=== PATIENT | female | born 1995 | race Caucasian/White ===

== ENCOUNTER → 2021-09-02 11:08 | Outpatient (CLI) | payer OTHER, SELFPAY ==
--- NOTE | 2021-09-02 | DI.US.S_ITS ---
PROCEDURE: US PELVIC COMPLETE INDICATIONS: IRREGULAR MENSES. INTRAUTERINE DEVICE. TECHNIQUE: Real-time scanning was performed of the pelvic organs, with image documentation. Additional endovaginal scanning was necessary due to incomplete visualization of the adnexal and endometrial structures by transabdominal scanning. COMPARISON: None. FINDINGS: Uterus: Uterus is anteverted and normal in size at 6.9 x 5.3 x 4.0 cm. The myometrium is homogeneous. The endometrium measures 4.8 mm combined thickness. Intrauterine device in place Ovaries: The right ovary measures 3.9 x 3.8 x 3.8 cm,. The left ovary measures 2.8 x 3.0 x 1.7 cm, . The ovaries have a normal sonographic appearance. Less than 12 follicles can be seen in each ovary. No adnexal masses are seen. 1.4 x 1.8 x 1.3 cm complex right ovarian cyst Other: No pathologic free abdominal or pelvic fluid. IMPRESSION: Complex right ovarian cyst, 1.8 cm, probably reflects hemorrhagic cyst. Intrauterine device in place. Approved by: Hood Freitas M.D. on 09/02/2021 at 15:43
== END ==
PROVIDERS: PCP Physician Assistant; Referring Provider Physician Assistant; Visit Provider Physician Assistant
DX: N92.6 Irregular menstruation, unspecified (principal); N83.291 Other ovarian cyst, right side; Z97.5 Presence of (intrauterine) contraceptive device
CPT/HCPCS: 76830; 76856

== ENCOUNTER → 2021-11-27 12:39 | Outpatient (CLI) | payer OTHER, SELFPAY ==
--- NOTE | 2021-11-27 12:43 | DI.US.S_ITS ---
PROCEDURE: US PELVIC COMPLETE INDICATIONS: 2 MONTH FOLLOW UP/CYSTS TECHNIQUE: Real-time scanning was performed of the pelvic organs, with image documentation. Additional endovaginal scanning was necessary due to incomplete visualization of the adnexal and endometrial structures by transabdominal scanning. COMPARISON: [facility], US, US PELVIC COMPLETE, 09/02/2021, 11:21. FINDINGS: Uterus: Uterus is anteverted and normal in size at 8.3 x 3.8 x 4-5 cm. The myometrium is homogeneous. The endometrium measures 5.8 mm combined thickness. Intrauterine device is centrally positioned within the uterus. Ovaries: The right ovary measures 4.5 x 3.3 x 3.2 cm. The left ovary measures 3.2 x 2.2 x 3.7 cm. 2.2 x 1.4 x 1.5 centimeter complex cyst in the right ovary. 1.4 x 1.8 x 1.8 centimeter simple cyst in the right ovary. Less than 12 follicles can be seen in each ovary. No adnexal masses are seen. Other: No pathologic free abdominal or pelvic fluid. IMPRESSION: 1. Intrauterine device centrally positioned within the uterus. 2. Left ovary is sonographically normal. 3. Right ovarian cyst including 2.2 x 1.4 x 1.5 complex cyst. Dictated by: Che Price MD, PhD on 11/27/2021 at 15:50 Approved by: Che Price MD, PhD on 11/27/2021 at 15:52
== END ==
PROVIDERS: PCP Physician Assistant; Referring Provider Physician Assistant; Visit Provider Physician Assistant
DX: N83.291 Other ovarian cyst, right side (principal); Z97.5 Presence of (intrauterine) contraceptive device
CPT/HCPCS: 76830; 76856

== ENCOUNTER 2023-01-25 18:14 | Emergency (ER) | payer OTHER, SELFPAY ==
[2023-01-25 18:16] VITALS: BP 166/110; PULSE 96; RESP 18; TEMP 36.4; O2SAT 100; BMI 29.8
--- NOTE | 2023-01-25 18:24 | DI.CT.S_ITS ---
PROCEDURE: CT CERVICAL SPINE WO CON INDICATIONS: thrown from horse 01/20 TECHNIQUE: Noncontrast 3 mm thick sections acquired from the skull base to the T4 level. Sagittal and coronal reformats were then constructed. For radiation dose reduction, the following was used: automated exposure control, adjustment of mA and/or kV according to patient size. COMPARISON: None. FINDINGS: Image quality: Excellent. Bones: No fractures or dislocations. Visualized superior ribs are intact. Soft tissues: Prevertebral soft tissues are normal in thickness. No paravertebral hematomas. No apical pneumothoraces. IMPRESSION: No acute, displaced fracture or traumatic subluxation. Dictated by: Alan Lyon M.D. on 01/25/2023 at 19:52 Approved by: Alan Lyon M.D. on 01/25/2023 at 19:54
--- NOTE | 2023-01-25 18:24 | DI.CT.S_ITS ---
PROCEDURE: CT HEAD/BRAIN WO CON INDICATIONS: thrown from horse 01/20 TECHNIQUE: Noncontrast 4.5 mm thick angled axial sections acquired from the foramen magnum to the vertex, with coronal and sagittal reformats. For radiation dose reduction, the following was used: automated exposure control, adjustment of mA and/or kV according to patient size. COMPARISON: None. FINDINGS: Image quality: Excellent. CSF spaces: Basal cisterns are patent. No extra-axial fluid collections. Ventricles are normal in size and shape. Brain: No midline shift. No intracranial masses or hemorrhage. Campos-white matter interface is normal. Skull and face: Calvarium and visualized facial bones are intact, without suspicious lesions. Sinuses: Visualized sinuses and mastoids are clear. IMPRESSION: No acute intracranial pathology. Dictated by: Alan Lyon M.D. on 01/25/2023 at 19:50 Approved by: Alan Lyon M.D. on 01/25/2023 at 19:51
--- NOTE | 2023-01-25 21:42 | PC.NURSE ---
Pt reports she took it easy for the first few days after the accident. When she started to increase activity started noticing dizziness, nausea.
[2023-01-25 21:53] VITALS: BP 139/87; PULSE 84; RESP 16; O2SAT 100
--- NOTE | 2023-01-25 22:46 | ED.HEATRA ---
HPI - Head Injury General Chief complaint: Head Injury Stated complaint: fell off horse/thinks concussion Time Seen by Provider: 01/25/23 22:42 Source: patient Mode of arrival: Ambulatory History of Present Illness HPI Narrative: Patient is a healthy 27-year-old female who presents today 1 week after head injury. Who reports that she was wearing helmet she fell from a horse she cracked her home he may have lost consciousness. She has been at home resting slowly improving. Today she got up to do her daily chores and start to return back to her daily life. Throughout the day she got more nauseous she had a worse headache. No numbness tingling or weakness. She did not throw up. She is not on any antiplatelet or anticoagulation medication. Related Data Previous Rx's Medication Instructions Recorded ondansetron 4 mg disintegrating 4 mg PO Q8H PRN nausea and 01/25/23 tablet vomiting #10 tabs Allergies Allergy/AdvReac Type Severity Reaction Status Date / Time cefaclor [From Ceclor] Allergy Verified 01/25/23 18:16 Review of Systems Review of Systems ROS Unobtainable: All systems reviewed & are unremarkable except as noted in HPI and below Patient History Social History Smoking Status: Never smoker Smoking Status: Never smoker alcohol intake frequency: 0-2 drinks per day Substance Use Type: does not use Exam Initial Vital Signs Initial Vital Signs: Vital Signs Temperature 97.5 F L 01/25/23 18:16 Pulse Rate 96 H 01/25/23 18:16 Respiratory Rate 18 01/25/23 18:16 Blood Pressure 166/110 H 01/25/23 18:16 Pulse Oximetry 100 01/25/23 18:16 Oxygen Delivery Method Room Air 01/25/23 18:16 GENERAL: Alert pleasant well-appearing 27-year-old female and in no acute distress. HEENT: Head atraumatic,EOMI, pupils reactive, face symmetric, moist mucous membranes CARDIOVASCULAR: Regular rate and rhythm without murmurs, rubs or gallops. RESPIRATORY: Breath sounds equal bilaterally, no wheezes rales or rhonchi. EXTREMITIES: Normal range of motion, no clubbing or edema. Neurovascularly intact NEUROLOGICAL: Alert and oriented x4.Normal gait and speech. Technical Operations Manager strength equal bilaterally cranial nerves intact SKIN: Warm, dry, no laceration, no petechiae, no rashes or lesions. Course Orders Ordered: ED Orders 01/25/23 18:24 CT cervical spine wo con Stat CT head/brain wo con Stat Vital Signs Vital signs: Vital Signs - 8 hr 01/25/23 21:53 Pulse Rate 84 Respiratory Rate 16 Blood Pressure 139/87 Pulse Oximetry 100 Oxygen Delivery Method Room Air MDM - Head Injury Imaging Data CT scan - head: Radiologist's Impression: PROCEDURE:? CT HEAD/BRAIN WO CON ? INDICATIONS:? thrown from horse 01/20 ? TECHNIQUE:? Noncontrast 4.5 mm thick angled axial sections acquired from the foramen magnum to the vertex, with coronal and sagittal reformats.? For radiation dose reduction, the following was used:? automated exposure control, adjustment of mA and/or kV according to patient size.? ? COMPARISON:? None. ? FINDINGS:? Image quality:? Excellent.? ? CSF spaces:? Basal cisterns are patent.? No extra-axial fluid collections.? Ventricles are normal in size and shape.? ? Brain:? No midline shift.? No intracranial masses or hemorrhage.? Campos-white matter interface is normal.? ? Skull and face:? Calvarium and visualized facial bones are intact, without suspicious lesions.? ? Sinuses:? Visualized sinuses and mastoids are clear.? ? IMPRESSION:? No acute intracranial pathology.? ? ? Dictated by: Alan Lyon M.D. on 01/25/2023 at 19:50 ? ? Approved by: Alan Lyon M.D. on 01/25/2023 at 19:51 ? CT - cervical spine: Radiologist's Impression: PROCEDURE:? CT CERVICAL SPINE WO CON ? INDICATIONS:? thrown from horse 01/20 ? TECHNIQUE:? Noncontrast 3 mm thick sections acquired from the skull base to the T4 level.? Sagittal and coronal reformats were then constructed.? For radiation dose reduction, the following was used:? automated exposure control, adjustment of mA and/or kV according to patient size.? ? COMPARISON:? None. ? FINDINGS:? Image quality:? Excellent.? ? Bones:? No fractures or dislocations.? Visualized superior ribs are intact.? ? Soft tissues:? Prevertebral soft tissues are normal in thickness.? No paravertebral hematomas.? No apical pneumothoraces.? ? ? IMPRESSION:? No acute, displaced fracture or traumatic subluxation. ? Dictated by: Alan Lyon M.D. on 01/25/2023 at 19:52 ? ? Approved by: Alan Lyon M.D. on 01/25/2023 at 19:54 ? MDM Narrative Medical decision making narrative: Patient healthy 27-year-old female who presents 1 week after her head injury. CT scans are negative she is having concussion like symptoms. At this time recommend supportive care she is given information about concussions and instructions on when to return to ED. she overall appears well there is no need for any further workup or evaluation. Discharge Plan Departure Patient Disposition: Home Clinical Impression: Concussion without loss of consciousness Instructions: Concussion Activity Restrictions/Additional Instructions: *You have been diagnosed with concussion *What to do: Increase daily activity slowly. Monitor screen time monitor activity some activity and light activity is encourage however no strenuous activity. No risky activities for at least 1 month or until you have been cleared by your provider you do not want a 2nd concussion close to the 1st. *Continue to take medications as directed Zofran 4 mg every 8 hours if needed for nausea vomiting *Follow up with your primary care provider in 2-3 days or call [phone] *Return to ER if you should have persistent vomiting increased weakness seizure activity or any new, worsening or concerning symptoms Prescriptions: New ondansetron 4 mg tablet,disintegrating 4 mg PO Q8H PRN (Reason: nausea and vomiting) Qty: 10 0RF Referrals: Ana Caraballo PA-C [Primary Care Provider] - Stand Alone Forms: Patient Portal/API
== END 2023-01-25 23:07 | disposition home or self-care (01) ==
PROVIDERS: Emergency Provider Emergency Medicine; PCP Physician Assistant
DX: S06.0X0A Concussion without loss of consciousness, initial encounter (principal); V80.010A Animal-rider injured by fall from or being thrown from horse in noncollision accident, initial encounter
CPT/HCPCS: 70450; 72125; 99283; 99284

== ENCOUNTER 2023-06-14 13:08 | Emergency (ER) | payer OTHER, SELFPAY ==
[2023-06-14 13:19] VITALS: BP 161/95; PULSE 80; RESP 16; TEMP 37.3; O2SAT 97; BMI 29.1
--- NOTE | 2023-06-14 14:02 | ED_ITS ---
HPI - Headache General Chief Complaint: Headache Stated Complaint: headache, nausea Time Seen by Provider: 06/14/23 14:02 Source: patient Mode of arrival: Ambulatory Limitations: no limitations History of Present Illness HPI Narrative: 27-year-old female with history of hypertension been on losartan and labetalol for the past several months. Patient states was initially started on labetalol by a women's health provider she is not . She states it has been intermittently well controlled she checks with a cuff at home sometimes 150s sometimes higher sometimes lower. She is had persistent headache for the last week she states it sort of changes location it has not been located to 1 area in particular. She thought she noticed a little bit of left sided peripheral vision change was not as obvious when she holds up her fingers in her left peripheral vision. Has not appreciate any other changes. She states it has been there there has not been occurred in her black spot. She is had some nasal congestion and cough. Hourly when she lays down. She denies any vomiting but she is been nauseated. No numbness, tingling or weakness. No syncopal episodes. Patient states headaches been fairly mild but persistent. She is taken Tylenol and ibuprofen as needed. As well as antinausea medication. It has not resolved which is why she presents. She denies fevers or chills or diaphoresis. No neck pain. No chest pain or shortness of breath otherwise. No abdominal back or flank pain. No dysuria urgency or frequency. She states she is had some diarrhea mixed with constipation but no black or bloody stools. She is not on any other medications besides her to blood pressure meds. Denies any recent surgeries. Has not allergy to cefaclor. No tobacco, occasional alcohol, no recreational drugs. Accompanied by her today. Related Data Previous Rx's Medication Instructions Recorded ondansetron 4 mg disintegrating 4 mg PO Q8H PRN nausea and 01/25/23 tablet vomiting #10 tabs metoclopramide HCl 10 mg tablet 10 mg PO Q6H PRN nausea and 06/14/23 (Reglan) vomiting #10 tabs Allergies Allergy/AdvReac Type Severity Reaction Status Date / Time cefaclor [From [facility]] Allergy Verified 01/25/23 18:16 Review of Systems Review of Systems ROS Unobtainable: All systems reviewed & are unremarkable except as noted in HPI and below Patient History Social History Smoking Status: Never smoker Smoking Status: Never smoker alcohol intake frequency: 0-2 drinks per day Substance Use Type: does not use Exam Narrative Exam Narrative: GEN: well nourished, well appearing female, alert and oriented x 3, patient appears to be in mild distress. HEENT: Atraumatic, pupils are equal round reactive to light, extraocular movements are intact, visual nelson intact binocular and monocular, nares are clear, TMs are clear with no fluid, there is no conjunctival pallor. Throat is clear without any exudates, erythema, tonsillar enlargement or uvular deviation, no facial droop. Normal speech. HEART: Regular rate and rhythm without murmur, clicks, rubs. Pulses are equal in upper and lower extremities LUNGS:Lungs clear to auscultation, no wheezes, rales, crackles, chest moves symmetrically ABD:bowel sounds normal, soft, non-tender, no guarding, rebound, rigidity, no masses noted, no hepatosplenomegaly :No CVA tenderness MSCL: Non-tender, no muscle atrophy, muscles strength 5/5 upper and lower extremities, full range of motion, normal gait NEURO:CN 2-12 intact, sensation normal, reflexes 2/4 upper and lower extremities. finger nose finger test normal, heel jacobs test normal SKIN: No rash, erythema or other skin changes. Initial Vital Signs Initial Vital Signs: Vital Signs Temperature 99.2 F 06/14/23 13:19 Pulse Rate 80 06/14/23 13:19 Respiratory Rate 16 06/14/23 13:19 Blood Pressure 161/95 H 06/14/23 13:19 Pulse Oximetry 97 06/14/23 13:19 Oxygen Delivery Method Room Air 06/14/23 13:19 Course Orders Ordered: ED Orders 06/14/23 13:41 CBC Auto Diff [Complete Blood Count AUTO DIFF] Stat CMP [Comprehensive Metabolic Panel] Stat Lipase Stat 06/14/23 14:26 CT head/brain wo con Stat 06/14/23 14:31 Covid-19 + FLU A/B + RSV - PCR Stat Discontinued Medications Sodium Chloride (Normal Saline 0.9%) 1,000 mls @ 1,000 mls/hr IV BOLUS ONE Stop: 06/14/23 15:37 Last Infusion: 06/14/23 15:49 Dose: Infused Documented By: Admin: 06/14/23 14:57 Dose: 1,000 mls/hr Documented By: SAVANNA Ketorolac Tromethamine (Ketorolac 30 Mg/Ml Vial) 15 mg IV NOW ONE Stop: 06/14/23 14:40 Last Admin: 06/14/23 14:57 Dose: 15 mg Documented By: SAVANNA Metoclopramide HCl (Metoclopramide 10 Mg/2 Ml Inj) 10 mg IV NOW ONE Stop: 06/14/23 14:39 Last Admin: 06/14/23 14:57 Dose: 10 mg Documented By: SAVANNA Vital Signs Vital signs: Vital Signs - 8 hr 06/14/23 13:19 06/14/23 14:55 06/14/23 14:55 Temperature 99.2 F Pulse Rate 80 89 Respiratory Rate 16 Blood Pressure 161/95 H 150/92 H Pulse Oximetry 97 97 Oxygen Delivery Method Room Air 06/14/23 15:00 06/14/23 15:30 Temperature Pulse Rate 85 83 Respiratory Rate Blood Pressure Pulse Oximetry 98 97 Oxygen Delivery Method MDM - Headache Lab Data 06/14/23 13:41 06/14/23 13:41 Labs: Lab Results 06/14/23 06/14/23 Range/Units 13:41 14:31 WBC 7.4 (4.5-11.0) X10^3/uL RBC 4.15 (4.0-5.2) X10^6/uL Hgb 13.3 (12.0-16.0) g/dL Hct 38.1 (36-46) % MCV 91.9 (80-100) fL MCH 32.2 (26-34) PG MCHC 35.0 (30-36) % RDW 12.8 (11.6-14.8) % Plt Count 303 (150-400) X10^3/uL Neut % (Auto) 70.1 (50-75) % Lymph % (Auto) 19.4 L (25-40) % [place] % (Auto) 7.5 (3-14) % Eos % (Auto) 2.2 (2-4) % Baso % (Auto) 0.8 (0-2) % Neut # (Auto) 5200 (6197-9414) /uL Lymph # (Auto) 1400 (5171-2376) /uL [place] # (Auto) 600 (0-900) /uL Eos # (Auto) 200 (0-450) /uL Baso # (Auto) 100 (0-100) /uL Sodium 137 (137-145) mmol/L Potassium 4.4 (3.4-5.1) mmol/L Chloride 104 (98-107) mmol/L Carbon Dioxide 30 (22-32) mmol/L BUN 12 (7-17) mg/dL Creatinine 0.97 (0.52-1.04) mg/dL Estimated GFR > 60 (>60) mL/min BUN/Creatinine Ratio 12.4 (6-22) Glucose 126 H (70-100) mg/dL Calcium 10.8 H (8.4-10.2) mg/dL Total Bilirubin 0.9 (0.2-1.3) mg/dL AST 35 (14-36) IU/L ALT 51 H (<35) IU/L Alkaline Phosphatase 61 (38-126) U/L Total Protein 7.8 (6.3-8.2) g/dL Albumin 4.5 (3.5-5.0) g/dL Globulin 3.3 (1.7-4.1) g/dL Albumin/Globulin Ratio 1.4 (1.0-2.8) Lipase 48 (23-300) U/L SARS-CoV-2 (PCR) Negative (Negative) Influenza A (RT-PCR) Flu a negative (NEGATIVE) Influenza B (RT-PCR) Flu b negative (NEGATIVE) RSV (PCR) Negative (Negative) Point of Care Testing Test Results Negative Urine Dip Bedside Urine Glucose Negative Bedside Urine Bilirubin - Negative Bedside Urine Ketone - Negative Urine Specific [place] 1.000 Bedside Urine Occult Blood - Negative Bedside Urine pH 6.0 Bedside Urine Protein - Negative Bedside Urine Urobilinogen - Negative Bedside Urine Nitrite - Negative Bedside Urine Leukocytes - Negative Esterase Imaging Data CT scan - head: Radiologist's Impression: [address] [address] [address] Scan Report Signed Patient: Sierra Villaseñor MR#: [id number] : 1995 Acct:[id number] Age/Sex: 27 / F Date of Service: 06/14/23 Loc: ED Accession Number: [id number] Procedure: CT head/brain wo con Ordering Provider: Mahnaz Cedeno D.O. PROCEDURE: CT HEAD/BRAIN WO CON INDICATIONS: zimmerman x 1 week, n, no vomiting TECHNIQUE: Noncontrast 4.5 mm thick angled axial sections acquired from the foramen magnum to the vertex, with coronal and sagittal reformats. For radiation dose reduction, the following was used: automated exposure control, adjustment of mA and/or kV according to patient size. COMPARISON: [facility], CT, CT HEAD/BRAIN WO CON, 01/25/2023, 19:12. FINDINGS: Image quality: Excellent. CSF spaces: Basal cisterns are patent. No extra-axial fluid collections. Ventricles are normal in size and shape. Brain: No midline shift. No intracranial masses or hemorrhage. Campos-white matter interface is normal. Skull and face: Calvarium and visualized facial bones are intact, without suspicious lesions. Sinuses: Visualized sinuses and mastoids are clear. IMPRESSION: No acute intracranial pathology. Dictated by: Hai London M.D. on 06/14/2023 at 13:57 Approved by: Hai London M.D. on 06/14/2023 at 13:58 [facility] Narrative Medical decision making narrative: 27-year-old female with approximately a week of headache with nausea with complaint of possibly some left visual field defect. On examination patient has no acute neurologic changes no other neurologic changes appreciated by history. Headache has changed in location is not the worst headache of her life. She is had nausea but no vomiting. No other red flag symptoms. Neurologic examination is overall reassuring she does not appear to have any visual field defects with binocular evaluation or monocular. Visual acuity was obtained is 20/20 right and left as well as bilateral. Patient had labs, and after discussion had a head CT in January of 2023 at that time was negative if she had some concussive like symptoms. Patient and I discussed less likely to be having any new mass, bleed or other changes but not impossible. After discussion of risks versus benefit patient elects to move forward head CT although overall neuro exam is reassuring. Patient notes she had migraines in [place] but has not had them persistently as an adult. Head CT is negative, CBC shows low lymphocytes but otherwise normal white count, normal hemoglobin and platelets. Patient has slightly who calcium, glucose is 126 ALT is 50 otherwise normal electrolytes renal function and LFTs. Point of care urine shows a specific gravity of 1.000 but was warm. No other signs of infection urine is negative. COVID/influenza/RSV is negative. Patient received fluids, Toradol and Reglan. On recheck patient does state she feels improved not completely resolved but does feel better. She states no nausea. After discussion patient is felt appropriate for discharge home no other red flag symptoms. She did note she sometimes has trouble sleeping secondary to headaches at nighttime so discussed if she is having persistent symptoms she should follow-up for further workup. We also reviewed return precautions and signs and symptoms to return for. Discharge Plan Departure Patient Disposition: Home Clinical Impression: Headache Instructions: DI for Headache Activity Restrictions/Additional Instructions: Please follow-up with your physician for recheck if your symptoms continue to persist. Your blood pressure is mildly elevated continue to monitor at home and if it continues to be persistently elevated they may wish to adjust your medications. You may take your home medications as prescribed. You may try Reglan 1 tablet every 6 hours as needed for nausea/vomiting and headache. You can take this medication with Tylenol up to a 1000 mg every 6 hours and/or ibuprofen up to 600 mg every 6 hours as needed pain. Prescription sent to [facility] in [place]. Please return for fevers, rapidly worsening headache, passing out, persistent vomiting, new numbness, tingling or weakness, sudden vision changes or other new or concerning changes. Prescriptions: New metoclopramide HCl [Reglan] 10 mg tablet 10 mg PO Q6H PRN (Reason: nausea and vomiting) Qty: 10 0RF No Action ondansetron 4 mg tablet,disintegrating 4 mg PO Q8H PRN (Reason: nausea and vomiting) Qty: 10 0RF Referrals: Ana Caraballo PA-C [Primary Care Provider] - Stand Alone Forms: Patient Portal/API
--- NOTE | 2023-06-14 14:26 | DI.CT.S_ITS ---
PROCEDURE: CT HEAD/BRAIN WO CON INDICATIONS: zimmerman x 1 week, n, no vomiting TECHNIQUE: Noncontrast 4.5 mm thick angled axial sections acquired from the foramen magnum to the vertex, with coronal and sagittal reformats. For radiation dose reduction, the following was used: automated exposure control, adjustment of mA and/or kV according to patient size. COMPARISON: Located [facility], CT, CT HEAD/BRAIN WO CON, 01/25/2023, 19:12. FINDINGS: Image quality: Excellent. CSF spaces: Basal cisterns are patent. No extra-axial fluid collections. Ventricles are normal in size and shape. Brain: No midline shift. No intracranial masses or hemorrhage. Campos-white matter interface is normal. Skull and face: Calvarium and visualized facial bones are intact, without suspicious lesions. Sinuses: Visualized sinuses and mastoids are clear. IMPRESSION: No acute intracranial pathology. Dictated by: Hai London M.D. on 06/14/2023 at 13:57 Approved by: Hai London M.D. on 06/14/2023 at 13:58
[2023-06-14 14:32] LABS: Add Manual Diff / Slide Review NO; Basophils Absolute Auto 100 /uL (0-100); Basophils Percent Auto 0.8 % (0-2); Eosinophils Absolute Auto 200 /uL (0-450); Eosinophils Percent Auto 2.2 % (2-4); Hematocrit 38.1 % (36-46); Hemoglobin 13.3 g/dL (12.0-16.0); Lymphocytes Absolute Auto 1400 /uL (1100-4500); Lymphocytes Percent Auto 19.4 % (25-40); Mean Corpuscular Hemoglobin 32.2 PG (26-34); Mean Corpuscular Volume 91.9 fL (80-100); Monocytes Absolute Auto 600 /uL (0-900); Monocytes Percent Auto 7.5 % (3-14); Neutrophils Absolute Auto 5200 /uL (1500-7000); Neutrophils Percent Auto 70.1 % (50-75); Platelet Count 303 X10^3/uL (150-400); Red Blood Cell Count 4.15 X10^6/uL (4.0-5.2); Red Cell Distribution Width 12.8 % (11.6-14.8); White Blood Cell Count 7.4 X10^3/uL (4.5-11.0)
[2023-06-14 14:40] LABS: Alanine Aminotransferase 51 IU/L (<35); Albumin 4.5 g/dL (3.5-5.0); Albumin Globulin Ratio 1.4 (1.0-2.8); Alkaline Phosphatase 61 U/L (38-126); Aspartate Aminotransferase 35 IU/L (14-36); BUN Creatinine Ratio 12.4 (6-22); Bilirubin Total 0.9 mg/dL (0.2-1.3); Blood Urea Nitrogen 12 mg/dL (7-17); Calcium 10.8 mg/dL (8.4-10.2); Carbon Dioxide 30 mmol/L (22-32); Chloride 104 mmol/L (98-107); Estimated Glomerular Filt Rate > 60 mL/min (>60); Globulin 3.3 g/dL (1.7-4.1); Glucose 126 mg/dL (70-100); HEMOLYSIS < 15 (0-50); Lipase 48 U/L (23-300); Potassium 4.4 mmol/L (3.4-5.1); Sodium 137 mmol/L (137-145); Total Protein 7.8 g/dL (6.3-8.2)
[2023-06-14 14:55] VITALS: BP 150/92; PULSE 89; O2SAT 97
[2023-06-14] MEDS: SODIUM CHLORIDE 0.9% 1,000 ML 1000 ML IV (14:57)
[2023-06-14] MEDS: METOCLOPRAMIDE 10 MG/2 ML INJ IV (14:57)
[2023-06-14] MEDS: KETOROLAC 30 MG/ML VIAL 15 MG IV (14:57)
[2023-06-14 15:00] VITALS: PULSE 85; O2SAT 98
[2023-06-14 15:20] LABS: Influenza A - CEPHEID Flu A NEGATIVE (NEGATIVE); Influenza B - CEPHEID Flu B NEGATIVE (NEGATIVE); Respiratory Syncytial Virus Negative (Negative)
[2023-06-14 15:26] LABS: COVID-19 CEPHEID 4-PLEX PCR Negative (Negative)
[2023-06-14 15:30] VITALS: PULSE 83; O2SAT 97
== END 2023-06-14 15:49 | disposition home or self-care (01) ==
PROVIDERS: Emergency Provider Emergency Medicine; PCP Physician Assistant
DX: R51.9 Headache, unspecified (principal); Z20.822 Contact with and (suspected) exposure to COVID-19
CPT/HCPCS: 0241U; 70450; 80053; 81003; 81025; 83690; 85025; 96361; 96374; 96375; 99284; J1885; J2765

== ENCOUNTER → 2024-06-16 12:58 | Outpatient (CLI) | payer OTHER, SELFPAY ==
--- NOTE | 2024-06-16 13:00 | DI.NM.S_ITS ---
PROCEDURE: NM EXERCISE TREADMILL NON NUC COMPARISON: None. INDICATIONS: PALPITATIONS FINDINGS: Rest ECG sinus tachycardia 106 bpm. Alvino protocol 9:00, maximum heart rate 174 bpm (92% peak predicted), maximum blood pressure 180/90, 10.1 METS, TANNER +9%. Exercise ECG sinus tachycardia, no ST segment changes or arrhythmia. The patient did not report exercise-induced chest discomfort. IMPRESSION: Low risk study. No evidence of exercise-induced ischemia or arrhythmia. Resting tachycardia with normal heart rate response. Normal blood pressure response. Slightly reduced exercise capacity. Dictated by: Tanisha Garnett D.O. on 06/16/2024 at 16:24 Approved by: Tanisha Garnett D.O. on 06/16/2024 at 16:27
--- NOTE | 2024-06-16 13:00 | DI.ECHO.S_ITS ---
[facility] : : [address] : : [place] : : [id number] : : Phone: [phone] Echocardiogram Report + + :Name: KEVIN OCASIO Study Date: 06/16/2024 Height: 72 in : :[facility] ReadingLocation: Weight: 220 lb : : Gender: Female BSA: 2.2 m2 : :: 1995 Age: 28 yrs BP: 127/101 mmHg: :Reason For Study: PALPITATIONS : :Ordering Physician: JORGE, : :TANISHA Performed By: Ciera Granado : :Referring: TANISHA GARNETT E : + + Interpretation Summary The ejection fraction is estimated to be 60-65%. Diastolic function could not be accurately assessed due to tachycardia. The right ventricle is normal in size and function. No significant valvular abnormalities. Pulmonary artery pressures cannot be estimated because of the lack of a measurable TR jet velocity but the IVC suggests a CVP of around 3 mmHg. Procedure: A two-dimensional transthoracic echocardiogram with color flow and Doppler was performed. The study quality was technically adequate. There is no prior echocardiogram noted for this patient. The patient was in sinus tachycardia with heart rates between 100-115 bpm during the exam. Left Ventricle: The left ventricle is normal in size and wall thickness. The ejection fraction is estimated to be 60-65%. Diastolic function could not be accurately assessed due to tachycardia. Right Ventricle: The right ventricle is normal in size and function. Atria: The left atrial size is normal. Right atrial size is normal. There is no Doppler evidence for an interatrial shunt. Mitral Valve: The mitral valve is normal in structure and function. There is no mitral regurgitation noted. Aortic Valve: The aortic valve opens well. There is no aortic valve stenosis. No aortic regurgitation is present. Tricuspid Valve: The tricuspid valve is normal in structure and function. There is trace tricuspid regurgitation. Pulmonary artery pressures cannot be estimated because of the lack of a measurable TR jet velocity but the IVC suggests a CVP of around 3 mmHg. Pulmonic Valve: The pulmonic valve leaflets are thin and pliable; valve motion is normal. There is trace pulmonic regurgitation. Great Vessels: The aortic root is normal size. The dimensions of the ascending aorta are normal. The IVC is of normal diameter and collapses greater than 50% with a sniff. This suggests a low right atrial pressure of 3 mm Hg. Pericardium/ Pleura There is no pericardial effusion. There is no pleural effusion. MMode/2D Measurements & Calculations LVIDd: 4.6 cm LVOT diam: 2.2 cm LVIDs: 3.0 cm Ao root diam: 3.2 cm FS: 35.7 % asc Aorta Diam: 3.3 cm IVSd: 0.98 cm Ao Arch Diam (Prox Trans): 2.8 cm LVPWd: 0.84 cm LV amato. diameter/BSA (cm/m^2): 2.1 LV sys. diameter/BSA (cm/m^2): 1.3 LA A2 area: 16.5 cm2 RA long axis: 4.5 cm LA A4 area: 14.8 cm2 RA area: 11.5 cm2 LA length (vol): 4.8 cm RA vol: 25.1 ml LA vol: 43.0 ml RA : 11.3 ml/m2 LA vol index: 19.4 ml/m2 IVC diam: 1.5 cm RVD1 (basal): 2.8 cm RVD2 (mid): 2.1 cm TAPSE: 1.8 cm Doppler Measurements & Calculations Ao V2 max: 134.6 cm/sec LVOT Max Geovanny: 101.5 cm/sec Ao V2 mean: 105.1 cm/sec LV V1 max P.1 mmHg Ao max P.2 mmHg LV V1 VTI: 17.8 cm Ao mean P.7 mmHg AMANDA(I,D): 2.7 cm2 Ao V2 VTI: 24.9 cm AMANDA(V,D): 2.8 cm2 sev ratio: 0.71 AMANDA indexed to BSA (cm^2/m^2): 1.2 Med Peak E' Geovanny: 11.7 cm/sec PA V2 max: 102.5 cm/sec Lat Peak E' Geovanny: 18.1 cm/sec PA V2 mean: 72.7 cm/sec PA mean P.3 mmHg PA pr(Accel): 36.6 mmHg SV(LVOT): 66.8 ml Reading Physician:05:09 PM
== END ==
PROVIDERS: PCP Physician Assistant; Referring Provider Internal Medicine Cardiovascular Disease; Visit Provider Internal Medicine Cardiovascular Disease
DX: R00.2 Palpitations (principal)
CPT/HCPCS: 93017; 93306